=== PATIENT | female | born 2005 | race Two or more races ===

== ENCOUNTER → 2023-05-16 | Emergency (ER) | payer BC ==
[~2023-05-16] VITALS: Ht 160 cm; Wt 55.3 kg
== END | disposition home or self-care (01) ==
LOC: ER 18:02 → EMR PED 19:08
DX: S01.81XA Laceration without foreign body of other part of head, initial encounter (principal); W45.8XXA Other foreign body or object entering through skin, initial encounter; Y93.11 Activity, swimming; Y92.828 Other wilderness area as the place of occurrence of the external cause; Y99.9 Unspecified external cause status; Z88.8 Allergy status to other drugs, medicaments and biological substances